=== PATIENT | male | born 1930 | race Caucasian/White ===

== ENCOUNTER 2016-05-22 07:52 | Observation (INO) | payer MEDICARE ==
[2016-05-22] MEDS ORDERED: Naloxone* 0.4 MG/ML 1 ML VIAL ONE (08:42)
[2016-05-22] MEDS ORDERED: fentaNYL* 50 MCG/ML 2 ML VIAL (100 MCG VIAL) ONE (08:42)
[2016-05-22] MEDS ORDERED: Midazolam* 1 MG/ML 5 ML VIAL (5 MG) ONE (08:42)
[2016-05-22] MEDS ORDERED: Flumazenil* 0.1 MG/ML 5 ML MDV ONE (08:42)
--- NOTE | 2016-05-22 11:45 | RAD ---
Indication: Orthopnea, pleural effusions. 2 views of the chest are reviewed. Comparison is made with previous exam dated May 16, 2016. Cardiomegaly is noted. Interstitial edema consistent with CHF is noted. Bilateral pleural effusions are noted. Patient is status post transsternal thoracotomy. IMPRESSION: There appears to BE increased interstitial edema with persistent bilateral pleural effusions consistent with CHF.
[2016-05-22] MEDS: Saline FLUSH-CENTRAL* 10 ML SYRINGE CENT\\PICC SCH (16:48)
[2016-05-22] MEDS ORDERED: Warfarin TAB(*) 3 MG PO SCH (17:00)
[2016-05-22] MEDS ORDERED: Furosemide IV* 10 MG/ML 10 ML VIAL (100 MG) IV SCH (17:00)
[2016-05-22] MEDS: Sotalol TAB* 80 MG PO SCH (21:45)
--- NOTE | 2016-05-22 22:57 | CARD ---
CC: Dr. Jim Dykes ELECTRICAL CARDIOVERSION: DATE OF PROCEDURE: 05/22/16 PROCEDURE: Electrical cardioversion. PREPROCEDURE DIAGNOSIS: Atrial fibrillation. POSTPROCEDURE DIAGNOSIS: Atrial fibrillation. DESCRIPTION OF PROCEDURE: The indications, risks, and benefits were explained to the patient in the presence of his and he is amenable to proceeding. The patient received a total of 4 mg of Yissel sed and 25 mcg of fentanyl throughout the procedure. Using AP patches, 150 joules of energy was del ivered across the chest wall with conversion to a regular rhythm in the 50s. Initially, P waves wer e hard to see and seemed to be intermittent with a regular junctional escape, but currently he has a 12-lead ECG showing an ectopic atrial rhythm at a rate of 65 beats a minute with occasional brief s inus arrhythmia/sinus pauses and his corrected QT interval is 449 milliseconds. He has a first-degr ee AV block (on sotalol 60 b.i.d.). CONCLUSION: Successful electrical cardioversion from atrial fibrillation to sinus versus ectopic at rial rhythm. The patient was hemodynamically stable throughout the procedure and there were no comp lications. [id number] #: [id number]
[2016-05-23] MEDS: Saline FLUSH-CENTRAL* 10 ML SYRINGE CENT\\PICC SCH (00:32)
[2016-05-23 05:58] LABS: BUN/Creatinine Ratio 24.4 (8-20); Calcium 9.1 mg/dL (8.6-10.3); EGFR African American 103.4 (>60); EGFR Non-African American 80.4 (>60); Potassium 4.2 mmol/L (3.5-5.0)
[2016-05-23] MEDS ORDERED: Furosemide IV* 10 MG/ML VIAL (40 MG) IV SCH (08:00)
[2016-05-23 08:55] VITALS: BP 131/59
[2016-05-23] MEDS ORDERED: Finasteride TAB* 5 MG PO SCH (09:00)
[2016-05-23] MEDS ORDERED: Levothyroxine TAB* 75 MCG TAB PO SCH (09:00)
[2016-05-23] MEDS ORDERED: Ascorbic Acid TAB* 500 MG PO SCH (09:00)
[2016-05-23] MEDS ORDERED: Aspirin EC Low Dose* 81 MG TAB.EC PO SCH (09:00)
[2016-05-23] MEDS: Sotalol TAB* 80 MG PO SCH (09:01)
[2016-05-23] MEDS ORDERED: Warfarin TAB(*) 6 MG PO SCH (17:00)
--- NOTE | 2016-05-23 22:34 | DS ---
DISCHARGE SUMMARY: DATE OF ADMISSION: 05/22/16 DATE OF DISCHARGE: 05/23/16 HISTORY OF PRESENT ILLNESS AND HOSPITAL COURSE: Mr. Arriaga is an 85-year-old gentleman with complex past medical history or past cardiac history including aortic valve replacement, mild mitral insufficiency and stenosis and paroxysmal atrial fibrillation. He additionally has recently had pleural effusion and is seeing Pulmonology who have raised concerned of possible asbestosis. The patient went back into atrial fibrillation with worsening dyspnea and was brought in for elective cardioversion yesterday. He described orthopnea, PND, and worsening dyspnea compared with his recent office visit and exam and chest x -ray confirmed that is pleural effusion had increased. He underwent successful electrical cardioversion and post cardioversion systolic blood pressures remained around the 100. I elected to admit him for observation status in order to undergo intravenous Lasix with monitoring of vital signs. Today, the patient's breathing is much better. He did sleep better. He admits he urinated significantly. He is feeling generally better today and no new complaints. PAST MEDICAL HISTORY: The patient has a past medical history of coronary artery disease, history of stents, currently on medical management, diastolic congestive heart failure, paroxysmal atrial fibrillation, aortic valve stenosis , status post AVR in 2014 (#23 tissue valve), mild mitral stenosis, mild mitral insufficiency, dyslipidemia, hypertension, hyperthyroid disease. Pulmonary disease, workup in progress for asbestosis, relatively recent chronic pleural effusion. FAMILY HISTORY: The patient's father from emphysema. His mother from stroke. He has 3 brothers with coronary artery disease. SOCIAL HISTORY: The patient is , supportive who is present at the time of cardioversion. He stopped smoking over 25 years ago. He did drink regularly although has stopped recently because of the atrial fibrillation. REVIEW OF SYSTEMS: See history of present illness. PHYSICAL EXAMINATION: Exam on the day of discharge showed the patient was 5 feet 8 inches, weight 170 pounds with a BMI of 26, blood pressure this morning is 131/59. He is on the monitor. He is in sinus rhythm, 61 beats a minute with good QT interval. He is afebrile and oxygen saturations on room air are 98%. General Appearance: Elderly gentleman, lying at 40 degrees, in no acute distress. Cheek sweaty although less hyperemic than yesterday. No evidence of cyanosis. Neurologically, awake, alert, and oriented to person, place, and time. Cranial nerves other than hard of hearing are intact. He follows command while speech is articulate. Ambulation not observed, but no gross sensory motor deficits. Skin: Old midline sternotomy scar well-healed. No cyanosis. Respirations: Mildly diminished breath sounds in the bases and a few crackles on the right, but much improved compared with yesterday. Coronary : S1, S2, regular. Very soft systolic murmur in the right upper sternal border. Abdomen: Soft and nontender. Lower extremities are free of edema. LABORATORY DATA: Labs this morning sodium 137, potassium 4.2, chloride 101, bicarb 32, BUN 22, creatinine 0.9, glucose 96. BNP done yesterday 218. Chest x-ray from yesterday interpreted by Radiology, bilateral interstitial edema, persistent bilateral effusions. A 12-lead ECG done post cardioversion showed sinus bradycardia, 56 beats a minute, first-degree AV block. Left axis deviation consistent with left anterior fascicular block, poor R wave progression, unremarkable ST, and a corrected QT interval of 449 msec. SUMMARY: In summary, Mr. Arriaga is an 85-year-old gentleman with a complex past medical history with valvular heart disease, coronary artery disease, preserved left ventricular systolic function with decompensated diastolic failure with new - onset AFib. Additionally, he has pulmonary disease as described above. The patient underwent successful cardioversion, but was admitted due to worsening congestive heart failure for intravenous Lasix. His examine proved he clinically failed to improve and if weight are to believe, he lost 8 pounds overnight. DISCHARGE MEDICATIONS: He will be discharged on his admission medications of: 1. Amlodipine 5 mg a day. 2. Vitamin C. 3. Aspirin 81 mg a day. 4. Proscar 5 mg a day. 5. Lasix 40 mg every other day. 6. Synthroid 37.5 mg a day. 7. Potassium 20 mEq every other day. 8. Sotalol 60 mg b.i.d. 9. Spironolactone 12.5 mg every other day. 10. Coumadin. FOLLOWUP: He will follow up in our office later this month with the followup EKGs and he knows to call if he increase his weight. CC: Dr. Jim Dykes; Dr. Alexander* [id number]/[facility] #: [id number] [facility]
[2016-05-24] MEDS ORDERED: Spironolactone TAB* 25 MG PO SCH (09:00)
[2016-05-24] MEDS ORDERED: Potassium Citrate (NF) 10 MEQ TAB PO SCH (09:00)
== END 2016-05-23 10:19 | disposition home or self-care (01) ==
LOC: CHICATH 07:52 → MEDTELE 15:36
PROVIDERS: ADMIT Specialist; ATTEND Specialist
DX: I48.0 Paroxysmal atrial fibrillation (principal); Z79.01 Long term (current) use of anticoagulants; R06.02 Shortness of breath; R00.1 Bradycardia, unspecified; I44.4 Left anterior fascicular block; R94.31 Abnormal electrocardiogram [ECG] [EKG]; Z95.2 Presence of prosthetic heart valve; Z95.5 Presence of coronary angioplasty implant and graft; Z87.891 Personal history of nicotine dependence; Z79.82 Long term (current) use of aspirin; Z79.899 Other long term (current) drug therapy; Z88.0 Allergy status to penicillin; Z88.2 Allergy status to sulfonamides
CPT/HCPCS: 36415; 71020; 80048; 83880; 87070; 87205; 92960; 93005; 96374; A9270-GY; G0378; J1940; J2250; J2310; J3010